=== PATIENT | female | born 1975 | race Caucasian/White ===

== ENCOUNTER 2016-06-28 18:56 | Emergency (ER) | payer OTHER ==
[2005-07-23 07:38] VITALS: BP 123/68
[~2016-06-28] VITALS: Ht 170.2 cm; Wt 112.7 kg
[~2016-06-28 18:56] MED LIST: AMITRIPTYLINE H10 M1 PO; AMITRIPTYLINE H50 M1 PO; AMOXICILLIN 50500 MG PO; AMRIX15 MG PO; BENADRYL25 M2 PO; DESYREL 50MG50 MG PO; ELAVIL50 MG PO; FLEXERIL10 MG PO; HCTZ 25MG25 MG PO; LYRICA 100MG C100 M1 PO; LYRICA 75MG CAP75 MG PO; MACROBID 1100 MG/CAP PO; MAXALT10 MG PO; MULTIPLE VITAMI1 CAP PO; NAPROSYN 2250 MG/TAB PO; NAPROSYN500 MG PO; NORCO 325 MG-51 TAB PO; PAXIL 20MG20 MG PO; PEPCID 20MG TAB20 MG PO; PERCOCET 325 MG1 TA2 PO; PERCOCET 5/321 UDTAB PO; PERCOCET 650 MG1 TAB PO; PHENERGAN 25 TA25 MG PO; PREDNISONE 5MG5 MG; SYNTHROID0.025 MG PO; SYNTHROID0.125 MG/T PO; TAMIFLU 75MG75 MG PO; TOPAMAX 100MG100 MG PO; TYLENOL 325MG325 MG PO; TYLENOL 8 HR PO; TYLENOL ARTHRI650 M1 PO; ULTRAM 50MG TAB50 MG PO; ULTRAM50 MG PO; VIMOVO 20 MG-501 TCP PO; VITAMIN B COMPL1 T16 PO; WELLBUTRIN PO; ZITHROMAX 250M250 MG PO; ZOFRAN ODT4 MG PO
[2016-06-28] MEDS ORDERED: ULTRAM 50MG TAB50 MG PO (19:01)
[2016-06-28 19:21] LABS: BASO % 0.2 % (0.0-2.0); EOS # 0.2 (0.0-0.7); EOS % 1.4 % (0-4.0); GRAN # 8.9 (1.4-6.5); GRAN % 67.6 % (42.2-75.2); HEMATOCRIT 43.9 % (37.0-47.0); HEMOGLOBIN 14.2 g/dl (12.5-16.0); LYMPH # 3.1 (1.2-3.4); LYMPH % 23.3 % (20.0-51.0); MEAN CELL VOLUME 91 fl (80.0-100.0); MEAN CORPUSCULAR HEMOGLOBIN 30 pg (27.0-31.0); MEAN CORPUSCULAR HGB CONC 32 g/dl (33.0-37.0); MONO # 0.9 (0.1-0.6); MONO % 6.7 % (1.7-9.3); PLATELET COUNT 440 K/mm3 (130-400); RED BLOOD COUNT 4.82 M/mm3 (4.10-5.30); REDCELL DISTRIBUTION WIDTH-CV 13.6 % (11.5-14.5); WHITE BLOOD COUNT 13.2 K/mm3 (4.8-10.8)
[2016-06-28 19:34] LABS: PH 6 (5-8); URINE APPEARANCE Hazy; URINE BACTERIA None Seen /hpf; URINE BILIRUBIN Negative (NEGATIVE); URINE BLOOD Negative (NEGATIVE); URINE COLOR Yellow; URINE GLUCOSE Negative (NEGATIVE); URINE KETONE Negative (NEGATIVE); URINE UROBILINOGEN Negative (NEGATIVE)
[2016-06-28 19:44] LABS: INFLUENZA B NEGATIVE
[2016-06-28 19:46] LABS: ALBUMIN 4.5 gm/dL (3.5-5.0); BILIRUBIN,TOTAL 0.8 mg/dL (0.0-1.0); C-REACTIVE PROTEIN 2.5 mg/dL (0.0-0.9); CALCIUM 9.4 mg/dL (8.4-10.2); CREATININE, serum 0.61 mg/dL (0.52-1.25); TOTAL PROTEIN 8.4 gm/dL (6.4-8.2)
[2016-06-28 20:07] VITALS: BP 105/85; PULSE 89; TEMP 98.5
== END 2016-06-28 21:01 | disposition home or self-care (01) ==
LOC: COL.ER 18:56
PROVIDERS: Family Medicine
DX: R51 Headache (principal); B34.9 Viral infection, unspecified
CPT/HCPCS: J1170; J1885; J2405; J2550; J7030

== ENCOUNTER 2016-07-22 14:12 | Emergency (ER) | payer OTHER ==
[2005-07-23 07:38] VITALS: BP 123/68
[~2016-07-22] VITALS: Ht 170.2 cm; Wt 113.2 kg
[2016-07-22 14:14] VITALS: BP 141/81; TEMP 98
[2016-07-22] MEDS ORDERED: PRINIVIL10 MG PO (14:18)
[2016-07-22] MEDS ORDERED: TYLENOL 8 HR PO (14:19)
[2016-07-22 17:55] VITALS: PULSE 78
== END 2016-07-22 17:57 | disposition home or self-care (01) ==
LOC: COL.ER 14:12
DX: G43.909 Migraine, unspecified, not intractable, without status migrainosus (principal)
CPT/HCPCS: J1170; J1200; J1885; J2405; J2550; J7030

== ENCOUNTER 2017-01-03 13:32 | Emergency (ER) | payer OTHER ==
[2005-07-23 07:38] VITALS: BP 123/68
[~2017-01-03] VITALS: Ht 170.2 cm; Wt 127.3 kg
[~2017-01-03 13:32] MED LIST changes: +PRINIVIL10 MG PO
[2017-01-03 13:34] VITALS: BP 153/84; PULSE 85; TEMP 98
== END 2017-01-03 15:16 | disposition home or self-care (01) ==
LOC: COL.ER 13:32
DX: G43.909 Migraine, unspecified, not intractable, without status migrainosus (principal); I10 Essential (primary) hypertension
CPT/HCPCS: J1885; J2550

== ENCOUNTER 2017-02-01 01:19 | Emergency (ER) | payer OTHER ==
[2005-07-23 07:38] VITALS: BP 123/68
[~2017-02-01] VITALS: Ht 170.2 cm; Wt 125.0 kg
[2017-02-01 01:21] VITALS: TEMP 97.8
[2017-02-01 02:05] LABS: BASO % 0.2 % (0.0-2.0); EOS # 0.2 (0.0-0.7); EOS % 2.1 % (0-4.0); GRAN # 4.8 (1.4-6.5); GRAN % 59.3 % (42.2-75.2); HEMATOCRIT 39.2 % (37.0-47.0); HEMOGLOBIN 12.8 g/dl (12.5-16.0); LYMPH # 2.6 (1.2-3.4); LYMPH % 31.6 % (20.0-51.0); MEAN CELL VOLUME 88 fl (80.0-100.0); MEAN CORPUSCULAR HEMOGLOBIN 29 pg (27.0-31.0); MEAN CORPUSCULAR HGB CONC 33 g/dl (33.0-37.0); MEAN PLATELET VOLUME 11.2 fl (7.4-10.4); MONO # 0.5 (0.1-0.6); MONO % 6.6 % (1.7-9.3); PLATELET COUNT 288 K/mm3 (130-400); RED BLOOD COUNT 4.45 M/mm3 (4.10-5.30); REDCELL DISTRIBUTION WIDTH-CV 13.5 % (11.5-14.5); WHITE BLOOD COUNT 8.1 K/mm3 (4.8-10.8)
[2017-02-01 02:16] LABS: ADJUSTED CALCIUM 8.9 mg/dL (8.4-10.2); ALANINE AMINOTRANSFERASE 16 U/L (9-52); ALBUMIN 3.8 gm/dL (3.5-5.0); ALKALINE PHOSPHATASE 80 U/L (50-136); ANION GAP 8 mmol/L (7-16); BILIRUBIN,TOTAL 0.6 mg/dL (0.0-1.0); BLOOD UREA NITROGEN 7 mg/dL (7-17); C-REACTIVE PROTEIN 2.3 mg/dL (0.0-0.9); CALCIUM 8.7 mg/dL (8.4-10.2); CARBON DIOXIDE 25 mmol/L (22-30); CHLORIDE 104 mmol/L (98-107); CREATININE, serum 0.57 mg/dL (0.52-1.25); GLUCOSE 92 mg/dL (74-106); LIPASE 38 U/L (23-300); POTASSIUM 3.9 mmol/L (3.4-5.0); SODIUM 137 mmol/L (137-145); TOTAL PROTEIN 7.1 gm/dL (6.4-8.2)
[2017-02-01 03:05] LABS: TROPONIN-I < 0.012 ng/mL (0.000-0.034)
[2017-02-01 03:25] LABS: PH 5 (5-8); URINE APPEARANCE Hazy; URINE BACTERIA Rare /hpf; URINE BILIRUBIN Negative (NEGATIVE); URINE BLOOD Negative (NEGATIVE); URINE COLOR Yellow; URINE GLUCOSE Negative (NEGATIVE); URINE KETONE Negative (NEGATIVE); URINE RBC 0-2 /hpf; URINE UROBILINOGEN Negative (NEGATIVE)
[2017-02-01 05:36] VITALS: BP 118/62; PULSE 80
[2017-02-01] MEDS ORDERED: PROTONIX 40MG T40 MG PO (05:36)
[2017-02-01] MEDS ORDERED: PHENERGAN 25 TA25 MG PO (14:10)
== END 2017-02-01 05:46 | disposition home or self-care (01) ==
LOC: COL.ER 01:19
PROVIDERS: Emergency Medicine
DX: G43.909 Migraine, unspecified, not intractable, without status migrainosus (principal); K21.9 Gastro-esophageal reflux disease without esophagitis; F32.9 Major depressive disorder, single episode, unspecified; I10 Essential (primary) hypertension; M79.7 Fibromyalgia
CPT/HCPCS: J1170; J2405; J7030

== ENCOUNTER 2017-02-01 11:49 | Emergency (ER) | payer OTHER ==
[2005-07-23 07:38] VITALS: BP 123/68
[~2017-02-01] VITALS: Ht 170.2 cm; Wt 125.0 kg
[~2017-02-01 11:49] MED LIST changes: +PROTONIX 40MG T40 MG PO
[2017-02-01 11:50] VITALS: TEMP 96.7
[2017-02-01] MEDS ORDERED: PHENERGAN 25 TA25 MG PO (14:10)
[2017-02-01 14:28] VITALS: BP 134/83; PULSE 93
== END 2017-02-01 14:29 | disposition home or self-care (01) ==
LOC: COL.ER 11:49
DX: G43.909 Migraine, unspecified, not intractable, without status migrainosus (principal); M79.7 Fibromyalgia
CPT/HCPCS: J1170; J2405; J2550; J7030

== ENCOUNTER 2017-06-17 11:18 | Emergency (ER) | payer OTHER ==
[2005-07-23 07:38] VITALS: BP 123/68
[~2017-06-17] VITALS: Ht 172.7 cm; Wt 124.1 kg
[2017-06-17 11:26] VITALS: BP 137/897; TEMP 98.8
[2017-06-17 12:37] LABS: INFLUENZA A NEGATIVE; INFLUENZA B NEGATIVE
[2017-06-17] MEDS ORDERED: PREDNISONE20 MG PO (14:46)
[2017-06-17] MEDS ORDERED: DOXYCYCLINE 10100 MG PO (14:46)
[2017-06-17 15:01] VITALS: PULSE 102
== END 2017-06-17 15:02 | disposition home or self-care (01) ==
LOC: COL.ER 11:18
PROVIDERS: Nurse Practitioner
DX: J40 Bronchitis, not specified as acute or chronic (principal); I10 Essential (primary) hypertension; F32.9 Major depressive disorder, single episode, unspecified; M79.7 Fibromyalgia
CPT/HCPCS: J1885; J2930; J7030

== ENCOUNTER 2017-06-28 14:11 | Emergency (ER) | payer OTHER ==
[2005-07-23 07:38] VITALS: BP 123/68
[~2017-06-28] VITALS: Ht 170.2 cm; Wt 126.4 kg
[~2017-06-28 14:11] MED LIST changes: +DOXYCYCLINE 10100 MG PO; +PREDNISONE20 MG PO
[2017-06-28 14:16] VITALS: TEMP 97
[2017-06-28] MEDS ORDERED: PRINIVIL2.5 MG PO (14:23)
[2017-06-28 15:09] LABS: BASO % 0.3 % (0.0-2.0); EOS # 0.1 (0.0-0.7); EOS % 0.8 % (0-4.0); GRAN # 8.9 (1.4-6.5); GRAN % 67.8 % (42.2-75.2); HEMATOCRIT 41.8 % (37.0-47.0); HEMOGLOBIN 13.2 g/dl (12.5-16.0); LYMPH # 3.1 (1.2-3.4); LYMPH % 23.7 % (20.0-51.0); MEAN CELL VOLUME 90 fl (80.0-100.0); MEAN CORPUSCULAR HEMOGLOBIN 29 pg (27.0-31.0); MEAN CORPUSCULAR HGB CONC 32 g/dl (33.0-37.0); MEAN PLATELET VOLUME 9.9 fl (7.4-10.4); MONO # 0.8 (0.1-0.6); MONO % 6.1 % (1.7-9.3); PLATELET COUNT 247 K/mm3 (130-400); RED BLOOD COUNT 4.63 M/mm3 (4.10-5.30)
[2017-06-28 15:21] LABS: ALANINE AMINOTRANSFERASE 30 U/L (9-52); ALBUMIN 3.8 gm/dL (3.5-5.0); ALKALINE PHOSPHATASE 96 U/L (50-136); ANION GAP 7 mmol/L (7-16); AST,SGOT 17 U/L (15-37); BILIRUBIN,TOTAL 0.5 mg/dL (0.0-1.0); BLOOD UREA NITROGEN 15 mg/dL (7-17); C-REACTIVE PROTEIN 1.1 mg/dL (0.0-0.9); CARBON DIOXIDE 25 mmol/L (22-30); CHLORIDE 101 mmol/L (98-107); CREATININE, serum 0.65 mg/dL (0.52-1.25); GLUCOSE 94 mg/dL (74-106); LIPASE 54 U/L (23-300); POTASSIUM 3.7 mmol/L (3.4-5.0); SODIUM 133 mmol/L (137-145); TOTAL PROTEIN 6.9 gm/dL (6.4-8.2)
[2017-06-28 15:32] LABS: CALCIUM 8.8 mg/dL (8.4-10.2); TROPONIN-I < 0.012 ng/mL (0.000-0.034)
[2017-06-28] MEDS ORDERED: LEVAQUIN 750MG750 M1 PO (16:26)
[2017-06-28] MEDS ORDERED: FLOVENT 110MCG7.9 GM IH (16:26)
[2017-06-28 16:58] VITALS: BP 104/82; PULSE 104
== END 2017-06-28 17:00 | disposition home or self-care (01) ==
LOC: COL.ER 14:11
PROVIDERS: Emergency Medicine
DX: R07.89 Other chest pain (principal); I10 Essential (primary) hypertension; M79.7 Fibromyalgia; Z90.710 Acquired absence of both cervix and uterus
CPT/HCPCS: J1885; J2405

== ENCOUNTER → 2017-07-24 | Outpatient (CLI) | payer OTHER ==
[~2017-07-24] MED LIST changes: +FLOVENT 110MCG7.9 GM IH; +LEVAQUIN 750MG750 M1 PO; +PRINIVIL2.5 MG PO
== END ==
LOC: BHSO 14:45
DX: F31.32 Bipolar disorder, current episode depressed, moderate (principal)

== ENCOUNTER → 2017-08-02 | Outpatient (CLI) | payer OTHER | LOC: BHSO 09:48 | DX: F31.32 Bipolar disorder, current episode depressed, moderate (principal) ==

== ENCOUNTER → 2017-08-09 | Outpatient (CLI) | payer OTHER ==
[~2017-08-09] MED LIST changes: +PEN-VEE K500 MG PO
== END ==
LOC: BHSO 11:02
DX: F33.1 Major depressive disorder, recurrent, moderate (principal)

== ENCOUNTER 2017-08-11 19:19 | Emergency (ER) | payer OTHER ==
[2005-07-23 07:38] VITALS: BP 123/68
[~2017-08-11] VITALS: Ht 170.2 cm; Wt 126.4 kg
[~2017-08-11 19:19] MED LIST changes: -PEN-VEE K500 MG PO
[2017-08-11 19:21] VITALS: BP 159/93; TEMP 97.3
[2017-08-11] MEDS ORDERED: TYLENOL 8 HR PO (19:25)
[2017-08-11] MEDS ORDERED: PROTONIX 40MG T40 MG PO (19:27)
[2017-08-11] MEDS ORDERED: PEN-VEE K500 MG PO (20:54)
[2017-08-11 21:00] VITALS: PULSE 88
== END 2017-08-11 21:01 | disposition home or self-care (01) ==
LOC: COL.ER 19:19
DX: K02.9 Dental caries, unspecified (principal); K03.81 Cracked tooth; I10 Essential (primary) hypertension

== ENCOUNTER 2017-08-30 19:02 | Emergency (ER) | payer OTHER ==
[2005-07-23 07:38] VITALS: BP 123/68
[~2017-08-30] VITALS: Ht 170.2 cm; Wt 123.5 kg
[~2017-08-30 19:02] MED LIST changes: +PEN-VEE K500 MG PO
[2017-08-30 19:05] VITALS: TEMP 97.7
[2017-08-30 19:58] LABS: BASO % 0.3 % (0.0-2.0); EOS # 0.1 (0.0-0.7); EOS % 1.1 % (0-4.0); GRAN # 3.7 (1.4-6.5); HEMATOCRIT 39.1 % (37.0-47.0); HEMOGLOBIN 12.6 g/dl (12.5-16.0); LYMPH # 2.1 (1.2-3.4); LYMPH % 32.9 % (20.0-51.0); MEAN CELL VOLUME 89 fl (80.0-100.0); MEAN CORPUSCULAR HEMOGLOBIN 29 pg (27.0-31.0); MEAN CORPUSCULAR HGB CONC 32 g/dl (33.0-37.0); MEAN PLATELET VOLUME 11.1 fl (7.4-10.4); MONO # 0.5 (0.1-0.6); MONO % 7.4 % (1.7-9.3); PLATELET COUNT 327 K/mm3 (130-400); RED BLOOD COUNT 4.41 M/mm3 (4.10-5.30); REDCELL DISTRIBUTION WIDTH-CV 14.2 % (11.5-14.5)
[2017-08-30 20:08] LABS: ALANINE AMINOTRANSFERASE 22 U/L (9-52); ALBUMIN 4.5 gm/dL (3.5-5.0); ALKALINE PHOSPHATASE 96 U/L (50-136); ANION GAP 13 mmol/L (7-16); AST,SGOT 19 U/L (15-37); BILIRUBIN,TOTAL 0.3 mg/dL (0.0-1.0); BLOOD UREA NITROGEN 8 mg/dL (7-17); CALCIUM 9.3 mg/dL (8.4-10.2); CARBON DIOXIDE 27 mmol/L (22-30); CHLORIDE 102 mmol/L (98-107); CREATININE, serum 0.71 mg/dL (0.52-1.25); GLUCOSE 100 mg/dL (74-106); POTASSIUM 3.8 mmol/L (3.4-5.0); SODIUM 142 mmol/L (137-145); TOTAL PROTEIN 7.9 gm/dL (6.4-8.2)
[2017-08-30] MEDS ORDERED: TESSALON PERLE200 MG PO (20:08)
[2017-08-30] MEDS ORDERED: CYMBALTA 20MG20 MG PO (20:09)
[2017-08-30] MEDS ORDERED: AMRIX30 MG PO (20:09)
[2017-08-30] MEDS ORDERED: ZOFRAN8 MG PO (20:09)
[2017-08-30 20:15] LABS: ACETAMINOPHEN < 10 ug/mL (10-30)
[2017-08-30 20:16] LABS: ALCOHOL(ethanol),MEDICAL < 10 mg/dL; SALICYLATE < 1.0 mg/dL
[2017-08-30 20:21] LABS: COLLECTION METHOD CLEAN CATCH
[2017-08-30 20:35] LABS: MUCOUS Present /lpf; PH 5 (5-8); URINE APPEARANCE Hazy; URINE BACTERIA None Seen /hpf; URINE BILIRUBIN Negative (NEGATIVE); URINE BLOOD Negative (NEGATIVE); URINE COLOR Yellow; URINE GLUCOSE Negative (NEGATIVE); URINE KETONE Negative (NEGATIVE); URINE LEUKOCYTE ESTERASE Negative (NEGATIVE); URINE NITRATE Negative (NEGATIVE); URINE PROTEIN(semi-quant) Negative (NEGATIVE); URINE RBC 0-2 /hpf; URINE UROBILINOGEN Negative (NEGATIVE)
[2017-08-30 20:46] LABS: TRICYCLIC ANTIDEPRESS URINE POSITIVE
[2017-08-30 23:15] VITALS: BP 141/84
[2017-08-31 02:00] VITALS: PULSE 82
== END 2017-08-31 02:00 ==
LOC: COL.ER 19:02
PROVIDERS: Emergency Medicine
DX: F32.9 Major depressive disorder, single episode, unspecified (principal); R45.851 Suicidal ideations; Z90.710 Acquired absence of both cervix and uterus

== ENCOUNTER → 2017-09-10 | Outpatient (CLI) | payer OTHER ==
[~2017-09-10] MED LIST changes: +AMRIX30 MG PO; +CYMBALTA 20MG20 MG PO; +TESSALON PERLE200 MG PO; +ZOFRAN8 MG PO
== END ==
LOC: BHSO 15:02
DX: F31.11 Bipolar disorder, current episode manic without psychotic features, mild (principal)

== ENCOUNTER → 2017-09-16 | Outpatient (CLI) | payer OTHER | LOC: BHSO 10:53 | DX: F31.11 Bipolar disorder, current episode manic without psychotic features, mild (principal) ==

== ENCOUNTER → 2017-10-01 | Outpatient (CLI) | payer OTHER | LOC: BHSO 10:51 | DX: F31.4 Bipolar disorder, current episode depressed, severe, without psychotic features (principal) ==

== ENCOUNTER → 2017-10-17 | Outpatient (CLI) | payer OTHER | LOC: COL.RAD 10:30 | DX: M46.87 Other specified inflammatory spondylopathies, lumbosacral region (principal) ==

== ENCOUNTER → 2017-10-28 | Outpatient (CLI) | payer OTHER | LOC: BHSO 09:42 | DX: F31.11 Bipolar disorder, current episode manic without psychotic features, mild (principal) ==

== ENCOUNTER → 2017-10-30 | Outpatient (CLI) | payer OTHER | LOC: MHCPAIN 13:56 | DX: G89.29 Other chronic pain (principal); M47.817 Spondylosis without myelopathy or radiculopathy, lumbosacral region; M54.16 Radiculopathy, lumbar region; M53.3 Sacrococcygeal disorders, not elsewhere classified | CPT/HCPCS: G0463 ==

== ENCOUNTER 2017-11-04 08:17 | Emergency (ER) | payer OTHER ==
[2005-07-23 07:38] VITALS: BP 123/68
[~2017-11-04] VITALS: Ht 170.2 cm; Wt 138.2 kg
[2017-11-04 08:19] VITALS: BP 152/86; TEMP 97.3
[2017-11-04 09:44] VITALS: PULSE 83
== END 2017-11-04 09:44 | disposition home or self-care (01) ==
LOC: COL.ER 08:17
DX: S09.90XA Unspecified injury of head, initial encounter (principal); F32.9 Major depressive disorder, single episode, unspecified; G43.909 Migraine, unspecified, not intractable, without status migrainosus; M79.7 Fibromyalgia; W19.XXXA Unspecified fall, initial encounter; W22.8XXA Striking against or struck by other objects, initial encounter; Y92.009 Unspecified place in unspecified non-institutional (private) residence as the place of occurrence of the external cause
CPT/HCPCS: J2360; J2550

== ENCOUNTER → 2017-11-04 | Outpatient (CLI) | payer OTHER | LOC: BHSO 13:00 | DX: F31.11 Bipolar disorder, current episode manic without psychotic features, mild (principal) ==

== ENCOUNTER → 2017-11-12 | Outpatient (CLI) | payer OTHER | LOC: BHSO 13:02 | DX: F31.11 Bipolar disorder, current episode manic without psychotic features, mild (principal) ==

== ENCOUNTER → 2017-11-18 | Outpatient (CLI) | payer OTHER | LOC: BHSO 13:01 | DX: F31.11 Bipolar disorder, current episode manic without psychotic features, mild (principal) ==

== ENCOUNTER → 2017-11-20 | Outpatient (CLI) | payer OTHER | LOC: COL.RAD 11-12 10:29 | DX: M89.38 Hypertrophy of bone, other site (principal); M47.816 Spondylosis without myelopathy or radiculopathy, lumbar region ==

== ENCOUNTER → 2017-12-02 | Outpatient (CLI) | payer OTHER | LOC: BHSO 13:05 | DX: F31.4 Bipolar disorder, current episode depressed, severe, without psychotic features (principal) ==

== ENCOUNTER 2017-12-05 12:37 | Emergency (ER) | payer OTHER ==
[2005-07-23 07:38] VITALS: BP 123/68
[~2017-12-05] VITALS: Ht 170.2 cm; Wt 138.2 kg
[2017-12-05 12:40] VITALS: TEMP 97.7
[2017-12-05] MEDS ORDERED: ZOFRAN ODT4 MG PO (14:54)
[2017-12-05 15:03] VITALS: BP 138/88; PULSE 81
== END 2017-12-05 15:04 | disposition home or self-care (01) ==
LOC: COL.ER 12:37
DX: G43.909 Migraine, unspecified, not intractable, without status migrainosus (principal); M79.7 Fibromyalgia; F32.9 Major depressive disorder, single episode, unspecified; E03.9 Hypothyroidism, unspecified; Z90.710 Acquired absence of both cervix and uterus; Z90.89 Acquired absence of other organs
CPT/HCPCS: J1200; J1885; J2550; J7030

== ENCOUNTER → 2018-01-16 | Outpatient (CLI) | payer OTHER | LOC: BHSO 11:10 | DX: F31.11 Bipolar disorder, current episode manic without psychotic features, mild (principal) ==

== ENCOUNTER 2018-02-06 14:17 | Emergency (ER) | payer OTHER ==
[2005-07-23 07:38] VITALS: BP 123/68
[~2018-02-06] VITALS: Ht 170.2 cm; Wt 125.0 kg
[2018-02-06 14:24] VITALS: BP 134/75; TEMP 98.2
[2018-02-06] MEDS ORDERED: LUNESTA 1MG TAB1 MG PO (14:39)
[2018-02-06] MEDS ORDERED: D3-5050000 IU PO (14:40)
[2018-02-06] MEDS ORDERED: VITAMIN B11000 MCG/M IM (14:40)
[2018-02-06 16:29] VITALS: PULSE 89
== END 2018-02-06 16:29 | disposition home or self-care (01) ==
LOC: COL.ER 14:17
DX: G43.909 Migraine, unspecified, not intractable, without status migrainosus (principal); I10 Essential (primary) hypertension; Z79.899 Other long term (current) drug therapy
CPT/HCPCS: J0780; J1200; J1630; J1885

== ENCOUNTER → 2018-03-05 | Outpatient (CLI) | payer OTHER ==
[~2018-03-05] MED LIST changes: +D3-5050000 IU PO; +LUNESTA 1MG TAB1 MG PO; +VITAMIN B11000 MCG/M IM
== END ==
LOC: BHSO 12:58
DX: F31.11 Bipolar disorder, current episode manic without psychotic features, mild (principal)

== ENCOUNTER 2019-05-31 11:33 | Emergency (ER) | payer SELFPAY ==
[2005-07-23 07:38] VITALS: BP 123/68
[~2019-05-31] VITALS: Ht 170.2 cm; Wt 135.5 kg
[2019-05-31 11:41] VITALS: BP 140/69; TEMP 97.6
[2019-05-31] MEDS ORDERED: HORIZANT600 MG PO (11:57)
[2019-05-31] MEDS ORDERED: WELLBUTRIN XL150 MG PO (11:58)
[2019-05-31] MEDS ORDERED: DESYREL DIVIDO300 MG PO (11:59)
[2019-05-31] MEDS ORDERED: AMBIEN 10MG10 MG PO (11:59)
[2019-05-31 13:13] VITALS: PULSE 97
== END 2019-05-31 13:16 | disposition home or self-care (01) ==
LOC: COL.ER 11:33
DX: L50.9 Urticaria, unspecified (principal); E03.9 Hypothyroidism, unspecified; F32.9 Major depressive disorder, single episode, unspecified; J45.909 Unspecified asthma, uncomplicated; Z90.89 Acquired absence of other organs; Z90.49 Acquired absence of other specified parts of digestive tract; Z98.890 Other specified postprocedural states
CPT/HCPCS: J1040

== ENCOUNTER 2020-10-05 22:06 | Emergency (ER) | payer SELFPAY ==
[2005-07-23 07:38] VITALS: BP 123/68
[~2020-10-05] VITALS: Ht 170.2 cm; Wt 137.7 kg
[~2020-10-05 22:06] MED LIST changes: +AMBIEN 10MG10 MG PO; +DESYREL DIVIDO300 MG PO; +HORIZANT600 MG PO; +WELLBUTRIN XL150 MG PO
[2020-10-05 22:12] VITALS: TEMP 98.1
[2020-10-05] MEDS ORDERED: VALIUM 2MG T2 MG/TAB PO (22:27)
[2020-10-05] MEDS ORDERED: AMITRIPTYLINE H25 M1 PO (22:27)
[2020-10-05 22:51] LABS: HEMATOCRIT 38.2 % (37.0-47.0); HEMOGLOBIN 12.2 g/dl (12.5-16.0); MEAN CELL VOLUME 86 fl (80.0-100.0); MEAN CORPUSCULAR HEMOGLOBIN 27 pg (27.0-31.0); MEAN CORPUSCULAR HGB CONC 32 g/dl (33.0-37.0); MEAN PLATELET VOLUME 10.6 fl (7.4-10.4); PLATELET COUNT 298 K/mm3 (130-400); RED BLOOD COUNT 4.47 M/mm3 (4.10-5.30); REDCELL DISTRIBUTION WIDTH-CV 14.3 % (11.5-14.5)
[2020-10-05 23:01] LABS: ALANINE AMINOTRANSFERASE 16 U/L (4-34); ALBUMIN 3.9 gm/dL (3.5-5.0); ALKALINE PHOSPHATASE 137 U/L (50-136); ANION GAP 7 mmol/L (7-16); AST,SGOT 27 U/L (15-37); BILIRUBIN,TOTAL < 0.1 mg/dL (0.0-1.0); BLOOD UREA NITROGEN 14 mg/dL (7-17); CALCIUM 8.9 mg/dL (8.4-10.2); CARBON DIOXIDE 29 mmol/L (22-30); CHLORIDE 101 mmol/L (98-107); CREATININE, serum 0.74 (0.52-1.25); GLUCOSE 120 mg/dL (74-106); POTASSIUM 3.5 mmol/L (3.4-5.0); SODIUM 137 mmol/L (137-145); TOTAL PROTEIN 7.1 gm/dL (6.4-8.2)
[2020-10-05 23:28] LABS: TROPONIN-I < 0.012 ng/mL (0.000-0.035)
[2020-10-05 23:37] LABS: EOSINOPHIL 1 % (0-4); LYMPHOCYTE 23 % (20.0-51.0); MYELOCYTE 1 % (0-0); NEUTROPHILS 73 % (42.0-75.2); PLATELET ESTIMATE NORMAL (NORMAL)
[2020-10-06 00:22] VITALS: BP 130/71; PULSE 71
[2021-02-08] MEDS ORDERED: PREDNISONE20 MG PO (02:12)
== END 2020-10-06 00:48 | disposition home or self-care (01) ==
LOC: COL.ER 22:06
PROVIDERS: Emergency Medicine
DX: R07.89 Other chest pain (principal); R53.81 Other malaise; Z88.1 Allergy status to other antibiotic agents; Z88.8 Allergy status to other drugs, medicaments and biological substances
CPT/HCPCS: J1885; J2405

== ENCOUNTER → 2020-12-23 | Outpatient (REF) ==
[~2020-12-23] MED LIST changes: +AMITRIPTYLINE H25 M1 PO; +PRIL40 PO; +VALIUM 2MG T2 MG/TAB PO
== END ==
LOC: COL.CARD 07:57
DX: Z01.810 Encounter for preprocedural cardiovascular examination (principal)

== ENCOUNTER 2021-01-19 22:30 | Emergency (ER) | payer SELFPAY ==
[~2021-01-19] VITALS: Ht 170.2 cm; Wt 139.1 kg
[~2021-01-19 22:30] MED LIST changes: -PRIL40 PO
[2021-01-19 23:07] LABS: BASO % 0.3 % (0.0-2.0); EOS # 0.3 (0.0-0.7); EOS % 2.4 % (0-4.0); GRAN # 6.4 (1.4-6.5); GRAN % 60.2 % (42.2-75.2); HEMATOCRIT 41.4 % (37.0-47.0); HEMOGLOBIN 13.2 g/dl (12.5-16.0); LYMPH # 3.3 (1.2-3.4); LYMPH % 31.5 % (20.0-51.0); MEAN CELL VOLUME 85 fl (80.0-100.0); MEAN CORPUSCULAR HEMOGLOBIN 27 pg (27.0-31.0); MEAN CORPUSCULAR HGB CONC 32 g/dl (33.0-37.0); MEAN PLATELET VOLUME 10.5 fl (7.4-10.4); MONO # 0.5 (0.1-0.6); MONO % 4.7 % (1.7-9.3); PLATELET COUNT 329 K/mm3 (130-400); RED BLOOD COUNT 4.85 M/mm3 (4.10-5.30); REDCELL DISTRIBUTION WIDTH-CV 14.4 % (11.5-14.5)
[2021-01-19 23:21] LABS: ALANINE AMINOTRANSFERASE 13 U/L (4-34); ALKALINE PHOSPHATASE 128 U/L (50-136); ANION GAP 9 mmol/L (7-16); AST,SGOT 25 U/L (15-37); BILIRUBIN,TOTAL 0.2 mg/dL (0.0-1.0); BLOOD UREA NITROGEN 13 mg/dL (7-17); C-REACTIVE PROTEIN 3.3 mg/dL (0.0-0.9); CALCIUM 8.8 mg/dL (8.4-10.2); CARBON DIOXIDE 27 mmol/L (22-30); CHLORIDE 101 mmol/L (98-107); CREATININE, serum 0.73 (0.52-1.25); GLUCOSE 117 mg/dL (74-106); LIPASE 80 U/L (23-300); POTASSIUM 3.6 mmol/L (3.4-5.0); SODIUM 136 mmol/L (137-145); TOTAL PROTEIN 7.2 gm/dL (6.4-8.2)
[2021-01-19 23:40] LABS: TROPONIN-I < 0.012 ng/mL (0.000-0.035)
[2021-01-20 00:35] LABS: COLLECTION METHOD CLEAN CATCH
[2021-01-20 00:42] LABS: PH 6 (5-8); SQUAMOUS EPITHELIAL 0-2 /hpf; URINE APPEARANCE Clear; URINE BACTERIA None Seen /hpf; URINE BILIRUBIN Negative (NEGATIVE); URINE BLOOD Negative (NEGATIVE); URINE COLOR Straw; URINE GLUCOSE Negative (NEGATIVE); URINE KETONE Negative (NEGATIVE); URINE LEUKOCYTE ESTERASE Negative (NEGATIVE); URINE NITRATE Negative (NEGATIVE); URINE PROTEIN(semi-quant) Negative (NEGATIVE); URINE RBC 0-2 /hpf; URINE UROBILINOGEN Negative (NEGATIVE)
[2021-01-20] MEDS ORDERED: PRIL40 PO (00:46)
[2021-01-20 00:53] VITALS: BP 133/76; PULSE 86; TEMP 98
[2021-02-08] MEDS ORDERED: PREDNISONE20 MG PO (02:12)
== END 2021-01-20 00:53 | disposition home or self-care (01) ==
LOC: COL.ER 22:30
PROVIDERS: Nurse Practitioner Primary Care
DX: K21.9 Gastro-esophageal reflux disease without esophagitis (principal); I10 Essential (primary) hypertension; F32.9 Major depressive disorder, single episode, unspecified; F41.9 Anxiety disorder, unspecified; Z79.899 Other long term (current) drug therapy
CPT/HCPCS: J2405; J7030

== ENCOUNTER 2021-01-21 15:53 | Emergency (ER) | payer SELFPAY ==
[~2021-01-21] VITALS: Ht 170.2 cm; Wt 139.1 kg
[~2021-01-21 15:53] MED LIST changes: +PRIL40 PO
[2021-01-21 16:26] VITALS: BP 116/74; PULSE 83; TEMP 98.4
[2021-02-08] MEDS ORDERED: PREDNISONE20 MG PO (02:12)
== END 2021-01-21 17:51 | disposition home or self-care (01) ==
LOC: COL.ER 15:53
DX: R06.02 Shortness of breath (principal); I10 Essential (primary) hypertension; F41.9 Anxiety disorder, unspecified; F32.9 Major depressive disorder, single episode, unspecified; M79.7 Fibromyalgia; Z20.822 Contact with and (suspected) exposure to COVID-19; Z79.899 Other long term (current) drug therapy

== ENCOUNTER 2021-07-13 12:56 | Emergency (ER) | payer SELFPAY ==
[~2021-07-13] VITALS: Ht 162.6 cm; Wt 139.1 kg
[2021-07-13] MEDS ORDERED: ZOFRAN 4MG T4 MG/TAB PO (14:22)
[2021-07-13] MEDS ORDERED: TESSALON P100 MG/CAP PO (14:22)
[2021-07-13 15:08] VITALS: BP 121/64; PULSE 71; TEMP 98.4
== END 2021-07-13 15:12 | disposition home or self-care (01) ==
LOC: COL.ER 12:56
DX: U07.1 COVID-19 (principal); J45.909 Unspecified asthma, uncomplicated; F32.A Depression, unspecified; F41.9 Anxiety disorder, unspecified; M79.7 Fibromyalgia; Z73.0 Burn-out; Z79.899 Other long term (current) drug therapy
CPT/HCPCS: J1885

== ENCOUNTER → 2021-08-16 | Outpatient (CLI) | payer SELFPAY ==
[~2021-08-16] MED LIST changes: +ATARAX 25MG25 MG/TAB PO; +HCTZ 25MG TAB25 MG PO; +MINIPRESS2 MG; +NORCO 325 MG-7.1 TAB PO; +RT ADVAIR 228 DISKUS IH; +TESSALON P100 MG/CAP PO; +ZESTRIL 10MG10 MG PO; +ZOFRAN 4MG T4 MG/TAB PO; +ZYRTEC 10MG10 MG PO
== END ==
LOC: MHCPAIN 10:46
DX: M47.817 Spondylosis without myelopathy or radiculopathy, lumbosacral region (principal); M54.50 Low back pain, unspecified; M53.3 Sacrococcygeal disorders, not elsewhere classified
CPT/HCPCS: G0463

== ENCOUNTER 2021-08-22 09:26 | Emergency (ER) | payer SELFPAY ==
[~2021-08-22] VITALS: Ht 170.2 cm; Wt 144.5 kg
[~2021-08-22 09:26] MED LIST changes: -ATARAX 25MG25 MG/TAB PO; -HCTZ 25MG TAB25 MG PO; -MINIPRESS2 MG; -NORCO 325 MG-7.1 TAB PO; -RT ADVAIR 228 DISKUS IH; -ZESTRIL 10MG10 MG PO; -ZYRTEC 10MG10 MG PO
[2021-08-22] MEDS ORDERED: LYRICA 75MG CAP75 MG PO (10:12)
[2021-08-22] MEDS ORDERED: HCTZ 25MG TAB25 MG PO (10:12)
[2021-08-22] MEDS ORDERED: ATARAX 25MG25 MG/TAB PO (10:13)
[2021-08-22] MEDS ORDERED: MINIPRESS2 MG (10:14)
[2021-08-22] MEDS ORDERED: ZYRTEC 10MG10 MG PO (10:15)
[2021-08-22] MEDS ORDERED: RT ADVAIR 228 DISKUS IH (10:16)
[2021-08-22] MEDS ORDERED: ZESTRIL 10MG10 MG PO (10:16)
[2021-08-22] MEDS ORDERED: NORCO 325 MG-7.1 TAB PO (10:17)
[2021-08-22 12:11] VITALS: BP 125/63; PULSE 90; TEMP 98.7
== END 2021-08-22 12:22 | disposition home or self-care (01) ==
LOC: COL.ER 09:26
DX: G43.909 Migraine, unspecified, not intractable, without status migrainosus (principal); J06.9 Acute upper respiratory infection, unspecified; Z20.822 Contact with and (suspected) exposure to COVID-19
CPT/HCPCS: J1200; J1885; J2765; J7030